=== PATIENT | female | born 1960 | race Caucasian/White ===

== ENCOUNTER 2019-09-02 11:30 | Emergency (ER) | payer MEDICARE, BC ==
--- NOTE | 2019-09-02 12:01 | EDM.PDOC ---
ED HPI GENERAL MEDICAL PROBLEM - General Chief Complaint: ENT Problem Stated Complaint: mouth/tongue burning, oral white patches Time Seen by Provider: 09/02/19 11:45 Source of Information: Reports: Patient History Limitations: Reports: No Limitations - History of Present Illness INITIAL COMMENTS - FREE TEXT/NARRATIVE: Patient comes to ER for evaluation of complaint of white patches on inside of cheek/tongue that developed recently. Oral mucosa foster slightly at times. No recent antibiotics. No changes in personal care products. No obvious trigger for this. Does not report having frequent problems with candidal infections. No other acute complaints. - Related Data Allergies Allergy/AdvReac Type Severity Reaction Status Date / Time doxycycline Allergy Nausea and Verified 09/02/19 11:54 Vomiting sulfamethoxazole Allergy Nausea and Verified 09/02/19 11:54 [From Bactrim] Vomiting trimethoprim [From Bactrim] Allergy Nausea and Verified 09/02/19 11:54 Vomiting Home Meds: Home Meds Aspirin 81 mg PO DAILY 09/02/19 [History] Non-Formulary Medication [NF Drug] 1 patch TOP ASDIRECTED 09/02/19 [History] Nystatin [Nystatin Oral Syringe] 5 ml PO QID #140 ml 09/02/19 [Rx] Pantoprazole Sodium [Protonix] 40 mg PO DAILY 09/02/19 [History] Pregabalin [Lyrica] 150 mg PO BID 09/02/19 [History] atorvaSTATin Calcium [Lipitor] 40 mg PO BEDTIME 09/02/19 [History] rOPINIRole [Requip] 1 mg PO BEDTIME 09/02/19 [History] tiZANidine [Zanaflex] 2 mg PO BID PRN 09/02/19 [History] traMADol [Ultram] 100 mg PO QIDACANDBED PRN 09/02/19 [History] Past Medical History Cardiovascular History: Reports: High Cholesterol Gastrointestinal History: Reports: GERD Musculoskeletal History: Reports: Fibromyalgia Psychiatric History: Reports: Depression Social & Family History - Tobacco Use Smoking Status *Q: Never Smoker ED ROS GENERAL - Review of Systems Review Of Systems: Comprehensive ROS is negative, except as noted in HPI. ED EXAM, GENERAL - Physical Exam Exam: See Below Exam Limited By: No Limitations General Appearance: Alert, WD/WN, No Apparent Distress Eye Exam: Bilateral Eye: EOMI, PERRL Nose: No: Nasal Deformity, Nasal Swelling, Nasal Drainage Throat/Mouth: Normal Lips, Normal Voice, No Airway Compromise, Other (scattered small white patches on oral mucosa noted, some on tongue) Respiratory/Chest: No Respiratory Distress Extremities: Normal Capillary Refill Neurological: Alert, Normal Cognition, Normal Gait Psychiatric: Normal Affect, Normal Mood Skin Exam: Warm, Dry, Intact Course - Orders/Labs/Meds Orders: Active Orders 24 hr Category Date Time Status Gentian Roma Med 09/02/19 12:00 Active 59 ml TOP DAILY Medication Orders Gentian Roma (Gentian Roma) 59 ml TOP DAILY SUJEY Last Admin: 09/02/19 12:17 Dose: Not Given Meds: Medications Generic Name Dose Route Start Last Admin Trade Name Freq PRN Reason Stop Dose Admin Gentian Roma 59 ml 09/02/19 12:00 09/02/19 12:17 Gentian Roma TOP Not Given DAILY SUJEY - Re-Assessments/Exams Free Text/Narrative Re-Assessment/Exam: Oral thrush. Rx given for Nystatin. To follow up as needed if symptoms continue. Departure - Departure Time of Disposition: 11:55 Disposition: Home, Self-Care 01 Condition: Good Clinical Impression: Thrush, oral - Discharge Information *PRESCRIPTION DRUG MONITORING PROGRAM REVIEWED*: Not Applicable *COPY OF PRESCRIPTION DRUG MONITORING REPORT IN PATIENT ERICA: Not Applicable Prescriptions: Nystatin [Nystatin Oral Syringe] 5 ml PO QID #140 ml Instructions: Oral Thrush, Adult Referrals: PCP,Unobtain [Primary Care Provider] - Forms: ED Department Discharge Additional Instructions: Hold/swish medication 4 times a day for one week. Follow up as needed if there are any problems. Sepsis Event Note - Focused Exam Date Exam was Performed: 09/02/19 Time Exam was Performed: 12:50 - My Orders Last 24 Hours: My Active Orders 09/02/19 12:00 Gentian Roma 59 ml TOP DAILY - Assessment/Plan Last 24 Hours: My Active Orders 09/02/19 12:00 Gentian Roma 59 ml TOP DAILY
[2019-09-02] MEDS: Gentian Violet 59 ML Bottle TOP SCH (12:17)
== END 2019-09-02 12:15 | disposition home or self-care (01) ==
LOC: LL.ED 11:30
DX: B37.0 Candidal stomatitis (principal); K21.9 Gastro-esophageal reflux disease without esophagitis; F32.9 Major depressive disorder, single episode, unspecified; E78.00 Pure hypercholesterolemia, unspecified; Z79.82 Long term (current) use of aspirin; Z79.899 Other long term (current) drug therapy; Z88.1 Allergy status to other antibiotic agents; Z88.2 Allergy status to sulfonamides
CPT/HCPCS: 99282